=== PATIENT | male | born 1960 | race Caucasian/White ===

== ENCOUNTER 2019-08-19 21:54 | Inpatient (IN) ==
[2019-08-19] MEDS ORDERED: 0.9 % Sodium Chloride 1,000 ML ONE ×2 (21:59→22:01)
[2019-08-19] MEDS ORDERED: *HR* Heparin 10,000 UNIT/10 ML VIAL ONE (21:59)
[2019-08-19] MEDS ORDERED: Heparin 1,000 UNITS/500 mL 500 ML ONE (21:59)
[2019-08-19] MEDS ORDERED: ISOVUE-370 200 ML INFUS..BTL ONE ×2 (21:59→23:30)
[2019-08-19] MEDS ORDERED: Nitroglycerin 1,000 MCG/10 ML VIAL IV ONE (21:59)
[2019-08-19] MEDS ORDERED: *HR* FentaNYL (PF) 100 MCG/2 ML VIAL ONE (22:12)
[2019-08-19] MEDS ORDERED: *HR* Midazolam HCl 2 MG/2 ML VIAL ONE (22:12)
[2019-08-19] MEDS ORDERED: Ondansetron 4 MG/2 ML VIAL ONE (23:58)
[2019-08-20] MEDS ORDERED: *HR* Midazolam HCl 2 MG/2 ML VIAL ONE (00:06)
[2019-08-20] MEDS ORDERED: Heparin 1,000 UNITS/500 mL 500 ML ONE (00:26)
[2019-08-20] MEDS ORDERED: ISOVUE-370 200 ML INFUS..BTL ONE (00:28)
[2019-08-20] MEDS ORDERED: *HR* Heparin 10,000 UNIT/10 ML VIAL ONE (00:37)
[2019-08-20] MEDS ORDERED: 0.9 % Sodium Chloride 1,000 ML IVC SCH (01:15)
[2019-08-20] MEDS ORDERED: *HR* Dextrose 50 % in Water (Syg) 50 ML SYRINGE IVP PRN ×2 (01:48→14:31)
[2019-08-20] MEDS ORDERED: D5% in Water 1,000 ML IVC PRN ×2 (01:48→14:31)
[2019-08-20] MEDS ORDERED: Dextrose Gel 15 GM/37.5 ML TUBE PO PRN ×4 (01:48→14:31)
[2019-08-20 05:41] LABS: Basophils % 0.2 %; Eosinophils % 0.2 %; Hematocrit 39.2 % (37.5-50.1); Hemoglobin 12.5 g/dL (12.9-16.9); Immature Granulocytes % 0.4 % (0-4); Lymphocytes # 1.5 K/mcL (0.6-4.6); Lymphocytes % 15.4 %; Mean Corpuscular HGB Conc 31.9 g/dL (31.6-35.5); Mean Corpuscular Hemoglobin 28.1 pg (28.0-33.3); Mean Corpuscular Volume 88.1 fL (83.0-100.0); Mean Platelet Volume 10.2 fL (9.4-12.4); Monocytes # 0.8 K/mcL (0.0-1.3); Monocytes % 8.2 %; Neutrophils # 7.3 K/mcL (1.6-8.9); Platelet Count 154 K/mcL (140-400); Red Blood Count 4.45 M/mcL (4.19-5.50); Red Cell Distribution Width 13.4 % (11.5-14.5); Segmented Neutrophils % 75.6 %; White Blood Count 9.7 K/mcL (4.3-11.1)
[2019-08-20 05:47] LABS: INR 1.2; Prothrombin Time 13.3 Seconds (9.4-12.1)
[2019-08-20 06:00] LABS: BUN/Creatinine Ratio 14 (6-26); Blood Urea Nitrogen 10 mg/dL (6-20); Calcium 8.6 mg/dL (8.6-10.3); Carbon Dioxide 27 mEq/L (23-29); Chloride 97 mEq/L (98-107); Glucose 282 mg/dL (70-105); Osmolality,Calculated 279 (280-300); Potassium 4.1 mEq/L (3.5-5.1); Sodium 130 mEq/L (136-145); eGFR For African Americans > 60 (> 60); eGFR For Non-African Americans > 60 (> 60)
[2019-08-20 06:44] LABS: Estimated Average Glucose 381 mg/dl
[2019-08-20] MEDS ORDERED: Insulin LISPRO 300 UNITS/3 ML VIAL SQ SCH ×7 (07:30→21:00)
[2019-08-20] MEDS ORDERED: carvediloL 6.25 MG TABLET PO SCH (08:00)
[2019-08-20] MEDS ORDERED: Nitroglycerin 0.4 MG TAB.SUBL SL PRN ×2 (08:22→14:31)
[2019-08-20] MEDS ORDERED: *HR* Ticagrelor 90 MG TABLET PO SCH (09:00)
[2019-08-20] MEDS ORDERED: Aspirin 81 MG TAB.CHEW PO SCH (09:00)
[2019-08-20] MEDS ORDERED: lisinopriL 5 MG TABLET PO SCH (09:00)
[2019-08-20] MEDS ORDERED: *HR* Heparin 5,000 UNIT/ML VIAL SQ SCH (09:30)
[2019-08-20 09:43] LABS: Troponin I > 73.00 ng/mL (< 0.04)
[2019-08-20] MEDS ORDERED: Ondansetron 4 MG/2 ML VIAL IVP PRN ×2 (09:50→14:31)
[2019-08-20] MEDS ORDERED: Insulin DETEMIR 100 UNIT/ML X5UNITS SQ ONE (11:00)
[2019-08-20] MEDS ORDERED: Perflutren Lipid Microsphere 1.3 ML in 0.9 % Sodium Chloride 8.7 ML IVP ONE (11:04)
[2019-08-20 11:55] LABS: Magnesium 1.8 mg/dL (1.6-2.6)
[2019-08-20] MEDS: Insulin LISPRO 300 UNITS/3 ML VIAL SQ SCH (16:58)
[2019-08-20] MEDS: carvediloL 6.25 MG TABLET PO SCH (16:58)
[2019-08-20] MEDS: *HR* Heparin 5,000 UNIT/ML VIAL SQ SCH (16:58)
[2019-08-20] MEDS: *HR* Ticagrelor 90 MG TABLET PO SCH (20:30)
[2019-08-20] MEDS: Insulin DETEMIR 100 UNIT/ML X5UNITS SQ SCH (20:31)
[2019-08-20] MEDS ORDERED: Insulin DETEMIR 100 UNIT/ML X5UNITS SQ SCH (21:00)
[2019-08-21] MEDS: *HR* Heparin 5,000 UNIT/ML VIAL SQ SCH (05:03)
[2019-08-21 05:34] LABS: Alanine Aminotransferase 51 Units/L (7-52); Albumin 3.4 g/dL (3.5-5.7); Albumin/Globulin Ratio 1.4 (1.1-2.2); Alkaline Phosphatase 96 Units/L (34-104); Aspartate Amino Transferase 51 Units/L (13-39); BUN/Creatinine Ratio 15 (6-26); Bilirubin,Direct 0.2 mg/dL (0.0-0.2); Bilirubin,Indirect 0.6 mg/dL (0.0-1.0); Bilirubin,Total 0.8 mg/dL (0.3-1.0); Blood Urea Nitrogen 12 mg/dL (6-20); Calcium 8.9 mg/dL (8.6-10.3); Carbon Dioxide 24 mEq/L (23-29); Chloride 98 mEq/L (98-107); Globulin 2.5 g/dL (2.4-3.5); Glucose 172 mg/dL (70-105); Osmolality,Calculated 278 (280-300); Potassium 3.8 mEq/L (3.5-5.1); Sodium 132 mEq/L (136-145); Total Protein 5.9 g/dL (6.4-8.9); eGFR For African Americans > 60 (> 60); eGFR For Non-African Americans > 60 (> 60)
[2019-08-21] MEDS: carvediloL 6.25 MG TABLET PO SCH (07:51)
[2019-08-21] MEDS: *HR* Ticagrelor 90 MG TABLET PO SCH (07:51)
[2019-08-21] MEDS: Insulin DETEMIR 100 UNIT/ML X5UNITS SQ SCH (08:09)
[2019-08-21] MEDS: Insulin LISPRO 300 UNITS/3 ML VIAL SQ SCH ×2 (08:10→12:21)
[2019-08-21] MEDS ORDERED: lisinopriL 5 MG TABLET PO SCH (09:00)
[2019-08-21] MEDS ORDERED: Aspirin 81 MG TAB.CHEW PO SCH (09:00)
[2019-08-21 13:25] VITALS: BP 121/73
[2019-08-21] MEDS ORDERED: Insulin NPH/REG 70/30 100 UNIT/ML (x5UNIT) SQ SCH (16:30)
[2019-08-21] MEDS ORDERED: Insulin DETEMIR 100 UNIT/ML X5UNITS SQ SCH (21:00)
== END 2019-08-21 15:33 | disposition home or self-care (01) ==
LOC: ICNU → 3NENU 08-20 16:01
PROVIDERS: ADMIT Student in an Organized Health Care Education/Training Program; ATTEND Student in an Organized Health Care Education/Training Program